=== PATIENT | female | born 1955 | race Caucasian/White ===

== ENCOUNTER 2022-09-16 22:08 | Observation (INO) | payer MEDICARE, SELFPAY ==
--- NOTE | 2022-09-16 22:11 | XRR_ITS ---
PROCEDURE INFORMATION: Exam: XR Chest Exam date and time: 09/16/2022 10:47 PM Age: 66 years old Clinical indication: Other: Weakness TECHNIQUE: Imaging protocol: Radiologic exam of the chest. Views: 1 view. COMPARISON: No relevant prior studies available. FINDINGS: Lungs: Emphysematous changes. Left lower lobe atelectasis versus minimal infiltrate. Pleural spaces: Unremarkable. No pleural effusion. No pneumothorax. Heart/Mediastinum: Unremarkable. No cardiomegaly. Bones/joints: Unremarkable. XR/XR chest 1V portable [id number] IMPRESSION: 1. Emphysematous changes. 2. Left lower lobe atelectasis versus minimal infiltrate.
--- NOTE | 2022-09-16 22:12 | ECG_ITS ---
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 Measurements Intervals [place] Rate: 73 P: 83 SD: 168 QRS: 71 QRSD: 86 T: 42 QT: 388 QTc: 428 Interpretive Statements SINUS RHYTHM WITH MARKED SINUS ARRHYTHMIA NONSPECIFIC ST & T-WAVE ABNORMALITY No previous ECG available for comparison Electronically Signed On 09-17-2022 0:13:53 WAFER FAB TECHNICIAN by Leslie Arzate M.D. [id number]
[2022-09-16 22:24] VITALS: BP 83/51; PULSE 77; RESP 18; TEMP 36.1; O2SAT 94; BMI 18.5
--- NOTE | 2022-09-16 22:36 | ECG_ITS ---
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 Measurements Intervals [place] Rate: 72 P: 0 SD: 0 QRS: -15 QRSD: 153 T: 54 QT: 426 QTc: 467 Interpretive Statements ATRIAL FIBRILLATION INDETERMINATE AXIS RIGHT BUNDLE BRANCH BLOCK [120+ ms QRS DURATION, UPRIGHT V1, 40+ ms S IN I/aVL/V4/V5/V6] MODERATE T-WAVE ABNORMALITY, CONSIDER LATERAL ISCHEMIA [-0.1+ mV T-WAVE IN I/aVL/V5/V6] Compared to ECG 09/16/2022 22:34:33 Indeterminate axis now present Right bundle-branch block now present Possible ischemia now present Sinus rhythm no longer present Sinus arrhythmia no longer present T-wave abnormality still present Electronically Signed On 09-17-2022 0:14:07 TRANSPORTATION ATTENDANT by Leslie Arzate M.D. [email or web address]/[id number]
[2022-09-16 22:47] VITALS: BP 136/67; PULSE 74; RESP 16; O2SAT 94
--- NOTE | 2022-09-16 22:51 | ED_ITS ---
HPI - Weakness General: Chief complaint: Weakness Stated complaint: WEAKNESS Time Seen by Provider: 09/16/22 22:09 Course Vital Signs: Vital signs: Vital Signs Temperature 97.0 F L 09/16/22 22:24 Pulse Rate 74 09/16/22 22:47 Respiratory Rate 16 09/16/22 22:47 Blood Pressure 136/67 09/16/22 22:47 Pulse Oximetry 94 09/16/22 22:47 Oxygen Delivery Me thod 09/16/22 22:47 Discharge Plan Discharge Condition: Stable Coding Level of Care Code ED Pick And Shovel Worker for Laverne Jackson
--- NOTE | 2022-09-16 22:55 | ED_ITS ---
HPI - Weakness General: Chief complaint: Weakness Stated complaint: WEAKNESS Time Seen by Provider: 09/16/22 22:09 Source: patient and EMS Mode of arrival: EMS Limitations: no limitations History of Present Illness: 66-year-old female states that she has been feeling generally weak over the last 2 to 3 days she states that her heater went out at home and she has been cold and laying on her couch she states that she is try to get up and she feels lightheaded when she gets up states she has not been drinking or eating over the last 3 days. She denies any pain anywhere patient had mild hypotension here originally she denies any vomiting denies any diarrhea. Associated symptoms: Denies chest pain, dysuria, easy bruising, headache(s), nausea or vomiting Review of Systems Const: Reports: fatigue and malaise Eyes: Denies: blurry vision or eye discomfort ENMT: Denies: throat pain or dental pain Card: Reports: pre-syncope; Denies: chest pain Resp: Denies: dyspnea GI: Denies: abdominal pain, nausea, vomiting or diarrhea : Denies: dysuria Musc: Denies: neck pain or back pain Skin/Breast: Denies: rash Neuro: Denies: headache(s) Psych: Denies: depression Jesse/Lymph: Denies: easy bruising All/Imm: Denies: urticaria PFSH ED PFSH: Medical History (Updated 09/17/22 @ 00:32 by Jess Kidd MD) Diabetes Social History (Updated 09/16/22 @ 22:56 by Jess Kidd MD) Substance/Drug Use: never Physical Exam Const: COMMON NORMALS: patient oriented x3 HENMT: COMMON NORMALS: normocephalic and atraumatic HEAD & SCALP: normocephalic and atraumatic Eye: COMMON NORMALS: Equal, round and reactive pupils present and EOMs intact bilaterally PUPIL: Yes Equal, round and reactive pupils present Neck/C-Spine: COMMON NORMALS: full ROM and supple Chest: COMMONS NORMALS: normal inspection of the chest and normal palpation of entire chest wall Resp: COMMON NORMALS: normal respiratory effort, No retractions, No use of accessory muscles and clear to auscultation bilaterally AUSCULTATION: clear to auscultation bilaterally Cardio: COMMON NORMALS: regular rate, regular rhythm and No murmurs present (Cardio) RATE: regular rate RHYTHM: regular rhythm GI: COMMON NORMALS: Normal to inspection, nondistended, normoactive bowel sounds present, Soft to palpation, non-tender and no masses PALPATION: Yes Soft to palpation Extremity: COMMON NORMALS: normal to inspection and full ROM Neuro: COMMON NORMALS: patient oriented x3, moves all extremities and no focal motor deficits Psych: COMMON NORMALS: mental status grossly normal, Normal thought process present and cooperative THOUGHT PROCESS: Normal thought process present Skin: COMMON NORMALS: no rashes or lesions noted and no wounds GENERAL SKIN EXAM: no rashes or lesions noted Course Vital Signs: Vital signs: Vital Signs Temperature 97.0 F L 09/16/22 22:24 Pulse Rate 77 09/16/22 23:39 Respiratory Rate 16 09/16/22 23:39 Blood Pressure 101/57 09/16/22 23:39 Pulse Oximetry 98 09/16/22 23:39 Oxygen Delivery Me thod 09/16/22 23:39 MDM - Weakness Medical Decision Making Patient presents here with weakness she is hypokalemic with fasting level 2.3 spoke to hospitalist will admit for observation for potassium replacement. Lab Data 09/16/22 23:07 09/16/22 23:07 Radiology Impressions Chest X-Ray 09/16/22 22:11 IMPRESSION: 1. Emphysematous changes. 2. Left lower lobe atelectasis versus minimal infiltrate. Laboratory Results WBC 7.7 10^3/uL (4.0-10.0) 09/16/22 23:07 RBC 4.32 10^6/uL (4.1-5.3) 09/16/22 23:07 Hgb 13.9 g/dL (11.5-15.3) 09/16/22 23:07 Hct 42.4 % (37.0-47.0) 09/16/22 23:07 MCV 98.1 fl (81-99) 09/16/22 23:07 MCH 32.2 pg (28.0-34.0) 09/16/22 23:07 MCHC 32.8 g/dL (30.0-36.0) 09/16/22 23:07 RDW 14.6 % (12.1-15.1) 09/16/22 23:07 Plt Count 360 10^3/cmm (130-400) 09/16/22 23:07 MPV 9.7 fL (7.4-10.4) 09/16/22 23:07 Neut % (Auto) 68.8 % 09/16/22 23:07 Lymph % (Auto) 23.1 % 09/16/22 23:07 [place] % (Auto) 5.8 % 09/16/22 23:07 Eos % (Auto) 1.4 % 09/16/22 23:07 Baso % (Auto) 0.5 % 09/16/22 23:07 Neut # (Auto) 5.29 10^3/uL (1.8-7.7) 09/16/22 23:07 Lymph # (Auto) 1.8 10^3/uL (0.8-4.8) 09/16/22 23:07 [place] # (Auto) 0.5 10^3/uL (0.2-0.9) 09/16/22 23:07 Eos # (Auto) 0.1 10^3/uL (0.0-0.8) 09/16/22 23:07 Baso # (Auto) 0.0 10^3/uL (0.0-0.1) 09/16/22 23:07 Nucleated RBC % (auto) 0 % 09/16/22 23:07 Nucleated RBCs # 0.0 /100WBC 09/16/22 23:07 Sodium 136 mmol/L (136-145) 09/16/22 23:07 Potassium 2.3 mmol/L (3.5-5.1) L* 09/16/22 23:07 Chloride 89 mmol/L (98-107) L 09/16/22 23:07 Carbon Dioxide 34 mmol/L (22-29) H 09/16/22 23:07 Anion Gap 15.3 (5-19) 09/16/22 23:07 BUN 18 mg/dL (8-23) 09/16/22 23:07 Creatinine 0.6 mg/dL (0.5-0.9) 09/16/22 23:07 GFR Calculation 99.4 mL/min (90-130) 09/16/22 23:07 Glucose 121 mg/dL (65-115) H 09/16/22 23:07 POC Glucose 126 mg/dL (70-110) H 09/16/22 23:07 Calculated Osmolality 285 mOsm/kg (285-295) 09/16/22 23:07 Lactate 1.7 mmol/L (0.5-2.2) 09/16/22 23:07 Calcium 10.0 mg/dL (8.5-10.5) 09/16/22 23:07 Magnesium 1.5 mg/dL (1.7-2.3) L 09/16/22 23:07 Total Bilirubin 0.4 mg/dL (0.15-1.2) 09/16/22 23:07 AST 23 U/L (0-32) 09/16/22 23:07 ALT 15 U/L (0-33) 09/16/22 23:07 Alkaline Phosphatase 104 U/L (35-105) 09/16/22 23:07 Troponin T Baseline 17 ng/L (0-10) H 09/16/22 23:07 Total Protein 6.7 g/dL (6.6-8.7) 09/16/22 23:07 Albumin 3.9 g/dL (3.5-5.2) 09/16/22 23:07 Globulin 2.8 g/dL (1.3-4.6) 09/16/22 23:07 TSH 2.42 uIU/mL (0.27-4.20) 09/16/22 23:07 EKG Data EKG 1: I personally reviewed and interpreted this EKG as follows: EKG interpretation date: 09/16/22 EKG interpretation time: 22:34 Interpretation: nsr hr [address] or t wave abnormalities qrs 86 qtc 414 Discharge Plan Discharge Patient Disposition: Admitted As Inpatient Clinical Impression: Hypokalemia, Weakness Condition: Stable Coding Level of Care Code ED Android Architect for Laverne Jackson
[2022-09-16 23:12] LABS: Glucose Point of Care 126 mg/dL (70-110)
[2022-09-16 23:17] LABS: Basophils % 0.5 %; Eosinophils # 0.1 10^3/uL (0.0-0.8); Eosinophils % 1.4 %; Hematocrit 42.4 % (37.0-47.0); Hemoglobin 13.9 g/dL (11.5-15.3); Lymphocytes # 1.8 10^3/uL (0.8-4.8); Lymphocytes % 23.1 %; Mean Corpuscular HGB Conc 32.8 g/dL (30.0-36.0); Mean Corpuscular Hemoglobin 32.2 pg (28.0-34.0); Mean Corpuscular Volume 98.1 fl (81-99); Mean Platelet Volume 9.7 fL (7.4-10.4); Monocytes # 0.5 10^3/uL (0.2-0.9); Monocytes % 5.8 %; Neutrophils # 5.29 10^3/uL (1.8-7.7); Neutrophils % 68.8 %; Nucleated Red Blood Cells % 0 %; Platelet Count 360 10^3/cmm (130-400); Red Blood Count 4.32 10^6/uL (4.1-5.3); Red Cell Distribution Width 14.6 % (12.1-15.1); White Blood Count 7.7 10^3/uL (4.0-10.0)
--- NOTE | 2022-09-16 23:19 | PC.NURSE ---
Pedal pulses doppled, feet cold to the touch, cap refill <3sec
[2022-09-16 23:39] VITALS: BP 101/57; PULSE 77; RESP 16; O2SAT 98
[2022-09-16 23:39] LABS: Lactate (Lactic Acid level) 1.7 mmol/L (0.5-2.2)
[2022-09-16 23:41] LABS: Troponin(5th) Baseline 17 ng/L (0-10)
[2022-09-16] MEDS: sodium chloride 0.9% 1,000 ML 999 ML IV (23:47)
[2022-09-16 23:52] LABS: Alanine Aminotransferase 15 U/L (0-33); Albumin Level 3.9 g/dL (3.5-5.2); Alkaline Phosphatase 104 U/L (35-105); Anion Gap 15.3 (5-19); Aspartate Amino Transferase 23 U/L (0-32); Blood Urea Nitrogen 18 mg/dL (8-23); Carbon Dioxide 34 mmol/L (22-29); Chloride 89 mmol/L (98-107); Globulin 2.8 g/dL (1.3-4.6); Glomerular Filtration Rate 99.4 mL/min (90-130); Glucose 121 mg/dL (65-115); Osmolality Calculated 285 mOsm/kg (285-295); Sodium 136 mmol/L (136-145); Thyroid Stimulating Hormone 2.42 uIU/mL (0.27-4.20); Total Bilirubin 0.4 mg/dL (0.15-1.2); Total Protein 6.7 g/dL (6.6-8.7)
[2022-09-17] VITALS (11 sets, daily range): BP systolic 133–178; BP diastolic 60–81; PULSE 68–86; RESP 16–18; TEMP 36.7; O2SAT 92–97
[2022-09-17 00:13] LABS: Potassium 2.3 mmol/L (3.5-5.1)
[2022-09-17] MEDS: potassium chloride ER 20 mEq Tablet 40 MEQ PO ×4 (00:50→15:04)
[2022-09-17] MEDS: sodium chloride 0.9% 1,000 ML 999 ML IV (00:51)
[2022-09-17] MEDS: potassium chloride premix 100 ML 25 MEQ IV (00:51)
[2022-09-17 01:09] LABS: Magnesium 1.5 mg/dL (1.7-2.3)
[2022-09-17 01:21] LABS: Troponin 5 2HR 16.58 ng/L (0-10)
[2022-09-17 01:23] LABS: Troponin 5 2HR Delta -0.42 ABS# (0-10)
[2022-09-17 02:04] LABS: Add Urine Microscopic? NO; Charge for UA Resulting for Rev
[2022-09-17 02:20] LABS: Bilirubin Urine Neg (Negative); Blood Urine Neg (Negative); Glucose Urine UA 4+ (Normal); Ketones Urine Negative (Negative); Leukocyte Esterase Urine Negative (Negative); Nitrate Urine Negative (Negative); Protein Urine Neg (Negative); Urine Appearance Clear (CLEAR); Urine Color Yellow (Yellow); Urobilinogen Urine Norm (Negative); pH Urine 7 (5-7)
[2022-09-17] MEDS: ibuprofen 600 mg Tablet PO (04:31)
--- NOTE | 2022-09-17 04:36 | ECG_ITS ---
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 Measurements Intervals [place] Rate: 73 P: 80 OK: 182 QRS: 77 QRSD: 99 T: 68 QT: 397 QTc: 440 Interpretive Statements SINUS RHYTHM WITH SINUS ARRHYTHMIA Compared to ECG 09/16/2022 23:15:22 Atrial fibrillation no longer present Indeterminate axis no longer present Right bundle-branch block no longer present T-wave abnormality no longer present Possible ischemia no longer present Electronically Signed On 09-18-2022 8:16:14 GROUP LEADER by Chantale Neumann M.D. [id number]
[2022-09-17 06:21] LABS: Troponin 5 6HR 21.13 ng/L (0-10)
[2022-09-17 06:25] LABS: Troponin 5 6HR Delta 4.13 ng/L (0-12)
[2022-09-17 08:16] LABS: Alanine Aminotransferase 13 U/L (0-33); Albumin Level 3.3 g/dL (3.5-5.2); Alkaline Phosphatase 87 U/L (35-105); Aspartate Amino Transferase 21 U/L (0-32); Blood Urea Nitrogen 13 mg/dL (8-23); Calcium 8.9 mg/dL (8.5-10.5); Carbon Dioxide 27 mmol/L (22-29); Chloride 99 mmol/L (98-107); Globulin 2.4 g/dL (1.3-4.6); Glomerular Filtration Rate 99.4 mL/min (90-130); Glucose 166 mg/dL (65-115); Osmolality Calculated 298 mOsm/kg (285-295); Sodium 142 mmol/L (136-145); Total Bilirubin 0.3 mg/dL (0.15-1.2); Total Protein 5.7 g/dL (6.6-8.7)
[2022-09-17] MEDS: pantoprazole DR 40 mg Tablet PO (08:20)
[2022-09-17] MEDS: sodium chloride 0.9% 1,000 ML 75 ML IV (08:21)
--- NOTE | 2022-09-17 11:01 | USCV_ITS ---
Cynthia Harrell Age: 66 Gender: F : 1955 Exam Date: 09/17/2022 12:35 Ordering Phys: Tl Barajas MD Technologist: Slava Pratt Exam Location: [facility] Indication: chest pain sob BP: 132 / 72 HR: 66 Rhythm: Sinus Technical Quality: Adequate MEASUREMENTS (Male / Female) Normal Values 2D ECHO LVOT Diameter 1.7 cm LV Ejection Fraction MOD 2C 69.3 % LV Ejection Fraction 2C AL 69.0 % LA Diameter 3.6 cm LA Width 2.8 cm M-MODE LV Diastolic Diameter MM 3.6 cm 4.2 - 5.9 / 3.9 - 5.3 cm LV Systolic Diameter MM 2.6 cm LV Ejection Fraction MM Teich 56.2 % IVS Diastolic Thickness MM 1.0 cm 0.6 - 1.0 / 0.6 - 0.9 cm IVS Systolic Thickness MM 1.6 cm LVPW Diastolic Thickness MM 0.8 cm 0.6 - 1.0 / 0.6 - 0.9 cm LVPW Systolic Thickness MM 1.5 cm RV Diastolic Diameter MM 1.8 cm Aortic Annulus Diameter 2.6 cm LA Ao Ratio MM 1.5 MV E Point Septal Separation 0.7 cm DOPPLER AV Peak Velocity 120.0 cm/s LVOT Peak Velocity 100.0 cm/s AV Area Cont Eq vti 1.7 cm squared AV Area Cont Eq pk 1.9 cm squared MV Area PHT 5.0 cm squared Mitral E to A Ratio 1.5 MV E' Velocity 76.0 cm/s Mitral E to MV E' Ratio 11.6 Mitral E to LV E' Lateral Ratio 16.8 Mitral E to LV E' Septal Ratio 8.9 TR Peak Velocity 170.7 cm/s TR Peak Gradient 11.7 mmHg Right Atrial Pressure 3.0 mmHg Pulmonary Artery Systolic Pressu 14.7 mmHg FINDINGS Left Ventricle Left ventricle is normal in size. LV systolic function is normal with EF of 55 to 60%. No regional wall motion abnormalities are seen. Diastolic function is normal Right Ventricle Normal in size and function Right Atrium Normal in size Left Atrium Normal in size Mitral Valve Moderate mitral annular calcification. Moderate mitral regurgitation Aortic Valve Structurally normal aortic valve. No significant aortic stenosis. Mild aortic regurgitation. Tricuspid Valve Mild tricuspid regurgitation. Pulmonary artery systolic pressure is normal. Pulmonic Valve Not well-visualized Pericardium Normal Aorta Normal in size IVC Appears to be normal CONCLUSIONS Technically limited quality echocardiogram because of poor ultrasonic windows LV systolic function is normal with EF of 55 to 60%. Diastolic function is normal. Moderate mitral annular calcification. Moderate mitral regurgitation Mild aortic regurgitation Mild tricuspid regurgitation No comparison studies are available. Jorge Luis Jones MD (Electronically Signed) Final Date: 17 September 2022 18:42 S
--- NOTE | 2022-09-17 11:07 | XRR_ITS ---
PROCEDURE INFORMATION: Exam: XR Chest Exam date and time: 09/17/2022 11:44 AM Age: 66 years old Clinical indication: Shortness of breath; Additional info: SOB, weakness TECHNIQUE: Imaging protocol: Radiologic exam of the chest. Views: 1 view. COMPARISON: CR (CHEST, ) 09/16/2022 10:47 PM FINDINGS: Lungs: Faint ground-glass opacity projecting peripherally left lower lung zone that appears to at progressed from previous exam raising possibility of developing viral pneumonitis. There appears to be underlying mild interstitial lung changes at both lung bases relatively stable and possibly due to idiopathic interstitial lung disease. Findings could be better assessed on CT examination of the chest. Pleural spaces: Unremarkable. No pleural effusion. No pneumothorax. Heart/Mediastinum: Unremarkable. No cardiomegaly. Bones/joints: Unremarkable for age. XR/XR chest 1V portable [id number] IMPRESSION: Questionable developing viral pneumonitis superimposed on mild bibasilar interstitial lung changes as discussed above.
[2022-09-17 11:41] LABS: Estmated Average Glucose 148; Hemoglobin A1C 6.8 % (4.0-6.0)
[2022-09-17 11:49] LABS: Anion Gap 13.2 (5-19); Blood Urea Nitrogen 13 mg/dL (8-23); Carbon Dioxide 35 mmol/L (22-29); Chloride 96 mmol/L (98-107); Glomerular Filtration Rate 99.4 mL/min (90-130); Glucose 148 mg/dL (65-115); Osmolality Calculated 295 mOsm/kg (285-295); Potassium 3.2 mmol/L (3.5-5.1); Sodium 141 mmol/L (136-145)
[2022-09-17 12:01] LABS: Procalcitonin 0.04 ng/mL (0-0.5)
[2022-09-17 12:09] LABS: Thyroid Stimulating Hormone 3.39 uIU/mL (0.27-4.20); Vitamin B12 1203 pg/mL (232-1245)
[2022-09-17 12:20] LABS: Iron 39 ug/dL (37-145); Percent Saturation 13.1 % (20-50); Total Iron Binding Capacity 296 mcg/dl; Unsaturated Iron Binding 257 ug/dL (112-347)
[2022-09-17 12:29] LABS: Folate Level > 20.0 ng/mL (4.8-37.3)
[2022-09-17] MEDS: fluticasone nasal spray 16gm Btl 1 SPRAY NASAL ×2 (12:34→18:00)
[2022-09-17 12:43] LABS: Glucose Point of Care 150 mg/dL (70-110)
--- NOTE | 2022-09-17 12:50 | PM.HP ---
Providers/Chief Complaint Admitting Physician: Tl Barajas MD Chief Complaint: WEAKNESS History of Present Illness Cynthia Harrell is a 66 year old female with past medical history of hypertension, anxiety, type 2 diabetes mellitus presents to the ER today because of weakness and dizziness especially on standing up. Been getting worse over last 3 days. After the patient she thought she has been having a sinus infection for last 1 week to 10 days for which she went to her primary care provider last week of August and was diagnosed of common cold. Since then she has been to an outside hospital for fall where she was diagnosed of sinus infection and first put on Bactrim which was later changed to Augmentin. Patient has been taking Augmentin for last few days. Patient has been complaining of on and off diarrhea. Patient states she has a history of hypertension for which she is supposed to be on lisinopril but she has not been taking her medications for last some time because of low blood pressures. Dizziness is getting worse on standing up from sitting position and moving head from one side to another. On presentation to the ER blood work showed potassium of 2.3 with a creatinine of 0.6 and a magnesium of 1.5. She was given 40 mg of oral and 40 mg of IV potassium and her potassium has improved to 3. Patient states she still feeling weak but less dizzy. Review of Systems General: Reports: 10 or more systems reviewed and unremarkable except in HPI and below Const: Denies: fever(s), chills, body aches, change in appetite, change in weight, malaise, night sweats, diaphoresis, change in sleep pattern, daytime sleepiness or snoring Eyes: Denies: change in vision, blurry vision, photophobia, eye discomfort or eye discharge ENMT: Denies: throat pain, enlarged tonsils, hoarseness, mouth pain, oral sores, dry mouth, tinnitus, nasal congestion or post nasal drip Card: Denies: chest pain, palpitations, irregular heart rhythm, edema, swelling of feet/ankles, lightheadedness, syncope, pre-syncope, dyspnea on exertion, orthopnea, leg pain with exertion or acrocyanosis Resp: Denies: dyspnea, productive cough, non-productive cough, wheezing, stridor, pain on inspiration, change in phlegm color, hemoptysis or chest congestion GI: Denies: abdominal pain, nausea, vomiting, hematemesis, coffee ground emesis, dysphagia, heartburn, diarrhea, constipation, bloating, GI cramping, change in bowel habits, pain on defecation, hematochezia or melena : Denies: flank pain, dysuria, urinary frequency, urinary urgency, urinary hesitancy, nocturia or hematuria Musc: Denies: neck pain, back pain, extremity pain, joint pain, joint swelling, joint redness, joint stiffness or limited range of motion Neuro: Denies: headache(s), numbness in extremities, weakness in extremities, sensory changes, lack of coordination, difficulty walking, frequent falls, dizziness, vertigo, confusion, Slurred speech present, difficulty communicating thoughts or seizure-like activity Psych: Denies: anxiety, depression, mood swings, panic attacks, hopelessness or irritability Endo: Denies: polyuria, polydipsia, tired all the time, cold intolerance, excessive sweating, flushing or heat intolerance Jesse/Lymph: Denies: easy bruising or easy bleeding All/Imm: Denies: tongue swelling, facial swelling or acute wheezing Medications/Allergies Home Medications Medication Instructions Recorded Confirmed Last Taken Type albuterol sulfate 90 mcg/actuation 2 puff inhalation Q4H PRN 09/17/22 09/17/22 Unknown History aerosol inhaler (Ventolin HFA) Shortness Of Breath Or Wheezing calcium carbonate 600 mg-vitamin 1 tab PO DAILY 09/17/22 09/17/22 09/16/22 History D3 20 mcg (800 unit) chewable tablet (Caltrate 600 plus D) canagliflozin 100 mg tablet 100 mg PO DAILY 09/17/22 09/17/22 09/16/22 History (Invokana) clopidogrel 75 mg tablet 75 mg PO DAILY 09/17/22 09/17/22 09/16/22 History desloratadine 5 mg tablet 5 mg PO DAILY 09/17/22 09/17/22 09/16/22 History duloxetine 30 mg capsule,delayed 30 mg PO DAILY 09/17/22 09/17/22 09/16/22 History release fluticasone propionate 50 1 spray intranasal DAILY 09/17/22 09/17/22 09/16/22 History mcg/actuation nasal spray,suspension furosemide 20 mg tablet 20 mg PO DAILY 09/17/22 09/17/22 09/16/22 History lisinopril 10 mg tablet 10 mg PO DAILY 09/17/22 09/17/22 09/16/22 History melatonin 5 mg tablet 5 mg PO BEDTIME 09/17/22 09/17/22 Unknown History afldcrld-jphusfu-ltvw-lutein tablet 1 tab PO DAILY 09/17/22 09/17/22 09/16/22 History omeprazole 20 mg capsule,delayed 20 mg PO DAILY 09/17/22 09/17/22 09/16/22 History release pravastatin 20 mg tablet 20 mg PO BEDTIME 09/17/22 09/17/22 Unknown History Allergies Allergy/AdvReac Type Severity Reaction Status Date / Time hydromorphone [From Dilaudid] Allergy Unknown Verified 09/17/22 07:40 meperidine [From Demerol] Allergy Unknown Verified 09/17/22 07:40 procaine [From Novocain] Allergy Unknown Verified 09/17/22 07:40 PFSH Acute PFSH: Medical History (Updated 09/17/22 @ 13:02 by Tl Barajas MD) COPD (chronic obstructive pulmonary disease) Diabetes Hypertension Social History (Updated 09/16/22 @ 22:56 by Jess Kidd MD) Substance/Drug Use: never Vitals/I&O/Wt Last Vital Signs Temp 97.0 F L 09/16/22 22:24 Pulse 86 09/17/22 12:30 Resp 16 09/17/22 12:30 BP 148/81 09/17/22 12:30 Pulse Ox 95 09/17/22 12:30 O2 Del Method 09/17/22 12:30 O2 Flow Rate 2 09/17/22 09:50 09/16/22 09/17/22 09/17/22 22:59 06:59 14:59 Intake Total 2051 200 / 200 Balance 2051 200 / 200 Weight last 48 hrs Weight 43.091 kg Physical Exam Narrative: General: No acute distress, AO x3, dehydrated HEENT: PERRLA, pupils bilaterally equal and reactive Chest: Normal vesicular breath sounds, no added sounds, equal good air entry bilaterally CVS: S1-S2 regular, no murmurs, no tachycardia, no gallops, no rubs Abdomen: Soft, nontender, no organomegaly, bowel sounds present Neuro: No focal deficits, no facial deformity, AO x3, power 5/5 in all limbs Data 09/16/22 23:07 09/17/22 11:20 A&P Assessment and plan (1) Weakness: Most likely secondary to hypokalemia secondary to diarrhea. Continue with IV hydration. Replete 120 mg of oral potassium. Repeat potassium in evening. Check orthostatics. Patient does not have any fever, leukocytosis or tachycardia. Infectious cause less likely. Hold off on antibiotics for now. Check flu swab. Check TSH, procalcitonin, vitamin B12, folate, iron panel. (2) Hypokalemia: As above. Hold off on Lasix for now. (3) Dizziness: Most likely secondary to hypokalemia. Cannot rule out posterior circulation stroke. Check CT head. Orthostatic. Meclizine as needed. (4) Diarrhea: Patient has been on antibiotics recently. Check stool for C. difficile. If negative will plan for loperamide (5) Hypertension: Goal blood pressure less than 140 over 90 mmHg. Patient is supposed to take lisinopril 10 mg oral at home. Patient states he has been noncompliant with medications. Check orthostatics. Restart medications as per goal blood pressures. (6) COPD (chronic obstructive pulmonary disease): DuoNebs every 6 hours, budesonide twice daily. Flonase twice daily. Oxygen supplementation keeping saturation over 90%. (7) Diabetes: Check A1c. Insulin sliding scale and low-dose protocol. Plan Full code. Carb consistent diet. Heparin for DVT prophylaxis Protonix ocularly prophylaxis Attestations Medical Necessity Statement*: Admission less than 2 midnights for management of weakness and dizziness in setting of severe hypokalemia and diarrhea Coding Level of Care Code 75633 Moderate MDM includes risk/complexity, reviewing previous or external records, reviewing test results, ordering lab/other test(s), speaking with independent historian (other than patient), independently interpretating test(s) (not separately recorded) and discussion of management or test(s) w/ other healthcare professional and Moderate Time for a total of 50 minutes, includes reviewing past or interval history, examining/interviewing patient, placing orders, counseling patient/family/other support, updating patient/family/other support, discussing plan of care with staff, communicating with other healthcare providers, documenting encounter and coordinating care Diagnoses Weakness R53.1 Hypokalemia E87.6 Dizziness R42 Diarrhea R19.7 Hypertension I10 COPD (chronic obstructive pulmonary disease) J44.9 Diabetes E11.9
[2022-09-17] MEDS: clopidogrel 75 mg Tablet PO (13:07)
[2022-09-17] MEDS: duloxetine 30 mg Capsule PO (13:07)
[2022-09-17 13:08] LABS: Influenza A by IFA negative (Negative); Influenza B by IFA negative (Negative)
[2022-09-17] MEDS: ipratropium-albuterol 3 mL Neb INHALATION ×2 (14:21→20:03)
[2022-09-17] MEDS: heparin 5,000 unit/mL INJ 1 mL 5000 UNIT SUBCUT (15:04)
[2022-09-17 18:05] LABS: Glucose Point of Care 157 mg/dL (70-110)
--- NOTE | 2022-09-17 18:31 | PC.NURSE ---
PT REFUSED FERROUS GLUCONATE, HUMALOG AND COLACE. EDUC PT ON RISKS AND BENEFITS OF TAKING MEDICATIONS, DR NOTIFIED AND AWARE.
[2022-09-17] MEDS: ondansetron 2 mg/ML SDV 2 mL 4 MG IVP (19:45)
[2022-09-17 19:59] LABS: Blood Urea Nitrogen 12 mg/dL (8-23); Calcium 10.2 mg/dL (8.5-10.5); Carbon Dioxide 32 mmol/L (22-29); Chloride 99 mmol/L (98-107); Glomerular Filtration Rate 99.4 mL/min (90-130); Glucose 152 mg/dL (65-115); Osmolality Calculated 297 mOsm/kg (285-295); Sodium 142 mmol/L (136-145)
[2022-09-17 20:01] LABS: Anion Gap 15.1 (5-19); Potassium 4.1 mmol/L (3.5-5.1)
[2022-09-17] MEDS: budesonide 0.5 mg/2 mL Neb INHALATION (20:03)
[2022-09-17 22:11] LABS: Glucose Point of Care 163 mg/dL (70-110)
[2022-09-17] MEDS: atorvastatin 40 mg Tablet 20 MG PO (22:32)
[2022-09-17] MEDS: benzonatate 100 mg Capsule PO (22:32)
[2022-09-18] VITALS (11 sets, daily range): BP systolic 135–178; BP diastolic 49–93; PULSE 71–94; RESP 16–20; TEMP 36.4–37.2; O2SAT 90–97
[2022-09-18] MEDS: ipratropium-albuterol 3 mL Neb INHALATION ×2 (02:18→15:53)
[2022-09-18 05:01] LABS: Basophils % 0.4 %; Eosinophils # 0.1 10^3/uL (0.0-0.8); Eosinophils % 0.9 %; Hematocrit 36.4 % (37.0-47.0); Hemoglobin 11.4 g/dL (11.5-15.3); Lymphocytes # 1.9 10^3/uL (0.8-4.8); Lymphocytes % 22.9 %; Mean Corpuscular HGB Conc 31.3 g/dL (30.0-36.0); Mean Corpuscular Hemoglobin 31.5 pg (28.0-34.0); Mean Corpuscular Volume 100.6 fl (81-99); Mean Platelet Volume 9.8 fL (7.4-10.4); Monocytes # 0.5 10^3/uL (0.2-0.9); Monocytes % 6.1 %; Neutrophils # 5.62 10^3/uL (1.8-7.7); Neutrophils % 69.5 %; Nucleated Red Blood Cells % 0 %; Platelet Count 327 10^3/cmm (130-400); Red Blood Count 3.62 10^6/uL (4.1-5.3); Red Cell Distribution Width 14.6 % (12.1-15.1); White Blood Count 8.1 10^3/uL (4.0-10.0)
[2022-09-18 05:20] LABS: Alanine Aminotransferase 15 U/L (0-33); Albumin Level 3.4 g/dL (3.5-5.2); Alkaline Phosphatase 85 U/L (35-105); Anion Gap 13.5 (5-19); Aspartate Amino Transferase 22 U/L (0-32); Blood Urea Nitrogen 11 mg/dL (8-23); Calcium 9.4 mg/dL (8.5-10.5); Carbon Dioxide 28 mmol/L (22-29); Chloride 106 mmol/L (98-107); Globulin 2.4 g/dL (1.3-4.6); Glomerular Filtration Rate 99.4 mL/min (90-130); Glucose 142 mg/dL (65-115); Magnesium 1.9 mg/dL (1.7-2.3); Osmolality Calculated 298 mOsm/kg (285-295); Potassium 4.5 mmol/L (3.5-5.1); Sodium 143 mmol/L (136-145); Total Bilirubin 0.3 mg/dL (0.15-1.2); Total Protein 5.8 g/dL (6.6-8.7)
[2022-09-18 05:25] LABS: Chol HDL Ratio 2.85 mg/dL (0.0-4.40); Cholesterol 151 mg/dL (0-200); HDL Cholesterol 53 mg/dL (60-100); LDL Cholesterol Calculated 68 mg/dL (50-129); Triglycerides 152 mg/dL (0-150); VLDL Cholestrol Calculation 30 mg/dL (0-30)
[2022-09-18 07:47] LABS: Glucose Point of Care 122 mg/dL (70-110)
--- NOTE | 2022-09-18 10:35 | PM.DCS ---
Discharge Providers Date of Admission: 09/17/22 07:08 Date of Discharge: September 18, 2022 Attending Provider at Admission: Tl Barajas MD Attending Provider at Discharge: Tl Barajas MD Diagnoses at Discharge Discharge Diagnosis (1) Weakness: Status: Acute (2) Hypokalemia: Status: Acute (3) Dizziness: Status: Acute (4) Diarrhea: Status: Acute (5) Hypertension: Status: Acute (6) COPD (chronic obstructive pulmonary disease): Status: Acute (7) Diabetes: Status: Acute Reason for Visit Reason for Visit: WEAKNESS Hospital Course Hospital Course Cynthia Harrell is a 66 year old female with past medical history of hypertension, anxiety, type 2 diabetes mellitus presents to the ER today because of weakness and dizziness especially on standing up.? Been getting worse over last 3 days.? After the patient she thought she has been having a sinus infection for last 1 week to 10 days for which she went to her primary care provider last week of August and was diagnosed of common cold.? Since then she has been to an outside hospital for fall where she was diagnosed of sinus infection and first put on Bactrim which was later changed to Augmentin.? Patient has been taking Augmentin for last few days.? Patient has been complaining of on and off diarrhea. Patient states she has a history of hypertension for which she is supposed to be on lisinopril but she has not been taking her medications for last some time because of low blood pressures.? Dizziness is getting worse on standing up from sitting position and moving head from one side to another. On presentation to the ER blood work showed potassium of 2.3 with a creatinine of 0.6 and a magnesium of 1.5.? She was given 40 mg of oral and 40 mg of IV potassium and her potassium has improved to 3.? Patient states she still feeling weak but less dizzy. Patient open to the hospital further evaluation and management of dehydration and acute hypokalemia leading to dizziness and weakness. Potassium was aggressively repleted. Multiple other causes for dizziness and weakness were ruled out including infection, posterior circulation stroke, congestive heart failure, anemia or thyroid abnormality. She responded well to the treatment and after recovery from hypokalemia her symptoms resolved. She was seen by physical therapy. She has been discharged hemodynamically stable condition with advised to stop antibiotics, maintaining hydration, meclizine as needed for dizziness, Advair for COPD. She is also advised to stop taking Lasix for now. Physical Exam Narrative: General: No acute distress, AO x3, dehydrated HEENT: PERRLA, pupils bilaterally equal and reactive Chest: Normal vesicular breath sounds, no added sounds, equal good air entry bilaterally CVS: S1-S2 regular, no murmurs, no tachycardia, no gallops, no rubs Abdomen: Soft, nontender, no organomegaly, bowel sounds present Neuro: No focal deficits, no facial deformity, AO x3, power 5/5 in all limbs Discharge Data Studies Completed and Pending Completed Studies During Hospitalization Category Date Time Status CT head wo con* [id number] Routine Cat Scan 09/18/22 13:01 Completed XR chest 1V portable [id number] Routine Exams 09/17/22 11:07 Completed XR chest 1V portable [id number] Stat Exams 09/16/22 22:11 Completed CV. echo complete* [id number] Routine Ultrasound 09/17/22 11:01 Completed Pending at discharge Category Date Time Status Clostridioides Difficile PCR Routine Lab 09/17/22 13:02 Ordered Enteric Bacterial Panel by PCR Routine Lab 09/17/22 13:02 Ordered Enteric Parasite Panel by PCR Routine Lab 09/17/22 13:02 Ordered Immunochemical Fecal OCB Routine Lab 09/17/22 13:02 Ordered Lactoferrin Routine Lab 09/17/22 13:02 Ordered Urine Lytes [Urine Random Lytes] Routine Lab 09/17/22 10:58 Ordered Radiology Impressions Chest X-Ray 09/17/22 11:07 IMPRESSION: Questionable developing viral pneumonitis superimposed on mild bibasilar interstitial lung changes as discussed above. Head CT 09/18/22 13:01 IMPRESSION: 1. No evidence of intracranial hemorrhage or mass effect. 2. 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 3. 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 This can be further evaluated MRI if indicated. 4. Vascular calcification. 5. No acute intracranial findings. Echocardiogram: ?CONCLUSIONS ?1. This is a technically difficult study. Optison was used per ?protocol. ?2. Normal left ventricular cavity size and systolic function. ?Left ventricular ejection fraction is estimated at 65 %. No ?regional wall motion abnormalities. ?3. Possibly low gradient severe aortic stenosis with peak ?velocity 3.9 m/s, peak gradient 62 mm Hg, mean gradient 29 mm ?Hg, LANG 0.6 cm2 (LVOT=1.9 cm). DVI=0.25. ?4. VINNIE is recommended for complete assessment of aortic ?stenosis. ?Chantale Neumann MD ?(Electronically Signed) ?Final Date:? ? ? 12 September 2022 ? 12:59 S Laboratory Results WBC 8.1 10^3/uL (4.0-10.0) 09/18/22 04:25 RBC 3.62 10^6/uL (4.1-5.3) L 09/18/22 04:25 Hgb 11.4 g/dL (11.5-15.3) L 09/18/22 04:25 Hct 36.4 % (37.0-47.0) L 09/18/22 04:25 MCV 100.6 fl (81-99) H 09/18/22 04:25 MCH 31.5 pg (28.0-34.0) 09/18/22 04:25 MCHC 31.3 g/dL (30.0-36.0) 09/18/22 04:25 RDW 14.6 % (12.1-15.1) 09/18/22 04:25 Plt Count 327 10^3/cmm (130-400) 09/18/22 04:25 MPV 9.8 fL (7.4-10.4) 09/18/22 04:25 Neut % (Auto) 69.5 % 09/18/22 04:25 Lymph % (Auto) 22.9 % 09/18/22 04:25 [place] % (Auto) 6.1 % 09/18/22 04:25 Eos % (Auto) 0.9 % 09/18/22 04:25 Baso % (Auto) 0.4 % 09/18/22 04:25 Neut # (Auto) 5.62 10^3/uL (1.8-7.7) 09/18/22 04:25 Lymph # (Auto) 1.9 10^3/uL (0.8-4.8) 09/18/22 04:25 [place] # (Auto) 0.5 10^3/uL (0.2-0.9) 09/18/22 04:25 Eos # (Auto) 0.1 10^3/uL (0.0-0.8) 09/18/22 04:25 Baso # (Auto) 0.0 10^3/uL (0.0-0.1) 09/18/22 04:25 Nucleated RBC % (auto) 0 % 09/18/22 04:25 Nucleated RBCs # 0.0 /100WBC 09/18/22 04:25 Sodium 143 mmol/L (136-145) 09/18/22 04:25 Potassium 4.5 mmol/L (3.5-5.1) 09/18/22 04:25 Chloride 106 mmol/L (98-107) 09/18/22 04:25 Carbon Dioxide 28 mmol/L (22-29) 09/18/22 04:25 Anion Gap 13.5 (5-19) 09/18/22 04:25 BUN 11 mg/dL (8-23) 09/18/22 04:25 Creatinine 0.6 mg/dL (0.5-0.9) 09/18/22 04:25 GFR Calculation 99.4 mL/min (90-130) 09/18/22 04:25 Glucose 142 mg/dL (65-115) H 09/18/22 04:25 POC Glucose 122 mg/dL (70-110) H 09/18/22 07:25 Estimat Average Glucose 148 09/17/22 11:20 Hemoglobin A1c 6.8 % (4.0-6.0) H 09/17/22 11:20 Calculated Osmolality 298 mOsm/kg (285-295) H 09/18/22 04:25 Lactate 1.7 mmol/L (0.5-2.2) 09/16/22 23:07 Calcium 9.4 mg/dL (8.5-10.5) 09/18/22 04:25 Phosphorus 2.0 mg/dL (2.5-4.5) L 09/18/22 04:25 Magnesium 1.9 mg/dL (1.7-2.3) 09/18/22 04:25 Iron 39 ug/dL (37-145) 09/17/22 11:20 TIBC 296 mcg/dl 09/17/22 11:20 % Saturation 13.1 % (20-50) L 09/17/22 11:20 Unsat Iron Binding 257 ug/dL (112-347) 09/17/22 11:20 Total Bilirubin 0.3 mg/dL (0.15-1.2) 09/18/22 04:25 AST 22 U/L (0-32) 09/18/22 04:25 ALT 15 U/L (0-33) 09/18/22 04:25 Alkaline Phosphatase 85 U/L (35-105) 09/18/22 04:25 Troponin T Baseline 17 ng/L (0-10) H 09/16/22 23:07 Troponin T 120 Minute 16.58 ng/L (0-10) H 09/17/22 00:56 Delta Troponin T -0.42 ABS# (0-10) L 09/17/22 00:56 Troponin T Hi Sens 6Hr 21.13 ng/L (0-10) H 09/17/22 06:00 Troponin T Hi Sens 6Hr Delta 4.13 ng/L (0-12) 09/17/22 06:00 Total Protein 5.8 g/dL (6.6-8.7) L 09/18/22 04:25 Albumin 3.4 g/dL (3.5-5.2) L 09/18/22 04:25 Globulin 2.4 g/dL (1.3-4.6) 09/18/22 04:25 Triglycerides 152 mg/dL (0-150) H 09/18/22 04:25 Cholesterol 151 mg/dL (0-200) 09/18/22 04:25 LDL Cholesterol, Calc 68 mg/dL (50-129) 09/18/22 04:25 Total VLDL Cholesterol 30 mg/dL (0-30) 09/18/22 04:25 HDL Cholesterol 53 mg/dL (60-100) L 09/18/22 04:25 Cholesterol/HDL Ratio 2.85 mg/dL (0.0-4.40) 09/18/22 04:25 Vitamin B12 1203 pg/mL (232-1245) 09/17/22 11:20 Folate > 20.0 ng/mL (4.8-37.3) 09/17/22 11:20 Procalcitonin 0.04 ng/mL (0-0.5) 09/17/22 11:20 TSH 3.39 uIU/mL (0.27-4.20) 09/17/22 11:20 Urine Color Yellow (Yellow) 09/17/22 00:30 Urine Appearance Clear (CLEAR) 09/17/22 00:30 Urine pH 7 (5-7) 09/17/22 00:30 Ur Specific [place] 1.010 (1.005-1.030) 09/17/22 00:30 Urine Protein Neg (Negative) 09/17/22 00:30 Urine Glucose (UA) 4+ (Normal) H 09/17/22 00:30 Urine Ketones Negative (Negative) 09/17/22 00:30 Urine Blood Neg (Negative) 09/17/22 00:30 Urine Nitrate Negative (Negative) 09/17/22 00:30 Urine Bilirubin Neg (Negative) 09/17/22 00:30 Urine Urobilinogen Norm mg/dL (Negative) 09/17/22 00:30 Ur Leukocyte Esterase Negative (Negative) 09/17/22 00:30 Influenza Type A Ag negative (Negative) 09/17/22 12:37 Influenza Type B Ag negative (Negative) 09/17/22 12:37 Vitals Last Vital Signs Temp 98.3 F 09/18/22 08:00 Pulse 84 09/18/22 09:00 Resp 18 09/18/22 09:00 BP 136/93 09/18/22 08:00 Pulse Ox 92 09/18/22 09:00 O2 Del Method 09/18/22 09:00 O2 Flow Rate 2 09/17/22 20:00 Discharge Plan Discharge Patient Disposition: Home Condition: Stable Prescriptions: New benzonatate 100 mg Capsule 100 mg PO TID PRN (Reason: Cough) Qty: 14 0RF ferrous gluconate 324 mg (37.5 mg iron) Tablet 324 mg PO BIDWM Qty: 60 0RF meclizine 25 mg Tablet 25 mg PO TID PRN (Reason: Dizziness) Qty: 10 0RF Advair Diskus 100-50 mcg/dose blister with device 1 inh inhalation BID Qty: 60 0RF Continued desloratadine 5 mg tablet 5 mg PO DAILY clopidogrel 75 mg tablet 75 mg PO DAILY lisinopril 10 mg tablet 10 mg PO DAILY pravastatin 20 mg tablet 20 mg PO BEDTIME duloxetine 30 mg capsule,delayed release(DR/EC) 30 mg PO DAILY melatonin 5 mg Tablet 5 mg PO BEDTIME Invokana 100 mg tablet 100 mg PO DAILY [id number] Tablet 1 tab PO DAILY Caltrate 600 plus D 600 mg-20 mcg (800 unit) Tablet,Chewable 1 tab PO DAILY omeprazole 20 mg capsule,delayed release(DR/EC) 20 mg PO DAILY fluticasone propionate 50 mcg/actuation spray,suspension 1 spray INTRANASAL DAILY Ventolin HFA 90 mcg/actuation HFA aerosol inhaler 2 puff INHALATION Q4H PRN (Reason: Shortness Of Breath Or Wheezing) Changed furosemide 20 mg tablet 20 mg PO DAILY PRN (Reason: Swelling) Qty: 10 0RF Discharge Orders: Discharge Order (Routine); Ordered 09/18/22 Ordered By: Tl Barajas Other Ambulatory Orders: DME: [facility] (Order) Location: None Selected Ordered By: Tl Barajas Referrals: [facility] [Other] - 09/25/22 2:20 pm (Dr. Newman ) Discharge Diet: Cardiac Discharge Activity: Resume usual activity and Increase activity as tolerated Patient Instructions: Benzonatate (By mouth), Iron Supplements (By mouth), Meclizine (By mouth), Fluticasone/Salmeterol (By breathing) (Advair Diskus 100/50, Advair..., COPD Stoplight, Opioid Safety Activity Restrictions/Additional Instructions: Please follow-up with your primary care provider within next 1 week for repeat BMP. Do not take Lasix anymore. Drink at least 1.5 to 2 L of water daily. Continue using your nebulizer as before. If you are not able to nebulize you can use Advair inhalation treatment. Discharge Attestations Time Spent in Discharge Care*: greater than 30 min Specific Discharge Activities: educating patient, discussing with pcp/other providers, discussing with family preservation caseworker/social workers/dc planners, documenting/other paperwork and evaluating patient/reviewing data Status at Discharge: Cognitive status at discharge: cognitively intact, Behavioral status at discharge: cooperative, Functional status at discharge: independent ambulation, Overall status at discharge: patient is back to baseline Quality Metrics Clinical Quality Measures [ No reported AMI, CVA or VTE this stay] Coding Level of Care Code 16078 Total time (in minutes) for Discharge: 45 Diagnoses Weakness R53.1 Hypokalemia E87.6 Dizziness R42 Diarrhea R19.7 Hypertension I10 COPD (chronic obstructive pulmonary disease) J44.9 Diabetes E11.9
--- NOTE | 2022-09-18 11:15 | PC.CHAP ---
Pastoral Care Encounter/Spiritual Assessment Type of Contact [] Declined coke crusher operator visit [] Patient/Family/Request visit [] Outpatient visit [] Follow-up visit [] Physician referral [] Code/Alert [] Routine visit [] Staff referral [] Actively dying [] Patient sleeping [] Family support [] [x] Out of room [] Palliative care [] [] Receiving care in room [] Pre-surgical visit [] Trauma [] Long length of stay [] ICU visit [] Other: Relational/Emotional Strength [] Patient feels connected with others/family/visitors/staff [] Distress [] Loneliness/isolation [] Abandonment Spirituality of Patient [] Person of [place]лия [] Attends Jew of their [place] [] Believes in Prayer [] Reads Bible or Nondenominational materials [] There are Spiritual issues to be addressed Director Nursing Service Interventions [] Prayer [] Active listening [] Non-anxious presence [] Spiritual/emotional support [] Crisis/trauma care [] Spiritual counseling [] Bereavement support [] Provided bereavement packet [] Provided Bible/devotional materials [] Provided toy/stuffed animal, coloring book to patient or family member [] Provided Communion [] Anointing/[place] [] Salvation [] Completed spiritual assessment [] Other: Impact on Illness or Injury [] Angry [] Fearful [] Anxious [] Often cries [] Exhaustion [] Unable to work [] Unable to attend yazidi [] Unable to walk/stand [] Unable to read [] Unable to drive [] Unable to eat/drink [] Unable to sleep [] Unable to be with family [] Patient intubated [] Other: Summary Time spent with patient
[2022-09-18 11:59] LABS: Glucose Point of Care 153 mg/dL (70-110)
[2022-09-18] MEDS: duloxetine 30 mg Capsule PO (12:05)
[2022-09-18] MEDS: docusate sodium 100 mg Capsule PO (12:05)
[2022-09-18] MEDS: pantoprazole DR 40 mg Tablet PO (12:05)
[2022-09-18] MEDS: lisinopril 10 mg Tablet PO (12:05)
[2022-09-18] MEDS: benzonatate 100 mg Capsule PO (12:05)
[2022-09-18] MEDS: ferrous gluconate 324 mg Tablet PO (12:05)
[2022-09-18] MEDS: clopidogrel 75 mg Tablet PO (12:05)
[2022-09-18] MEDS: insulin lispro 100 unit/1 mL SUBCUT (12:06)
--- NOTE | 2022-09-18 13:01 | CT_ITS ---
WS: [id number] CT HEAD TECHNIQUE: Noncontrast CT of the head obtained from the skullbase to the vertex. CLINICAL INFORMATION: post circulation stroke COMPARISON: None. DLP: 927.[address] scans at [facility] use at least one of these dose optimization techniques: automated e xposure control; mA and/or kV adjustment per patient size (includes targeted exams where dose is matc hed to clinical indication); or iterative reconstruction. FINDINGS: No evidence of intracranial hemorrhage or mass effect. Ventricular system and basal cisterns are herrera nt. Mild small vessel changes with mild parenchymal volume loss. No extra-axial fluid collections. Ch ronic infarct in the RIGHT frontal periventricular white matter. Mild ex vacuo dilatation adjacent RI GHT frontal horn. Cavernous carotid calcification. SURVEILLANCE OBSERVER territory appears normal. Incidental slightly low-lying cerebellar tonsils. No hydrocephalus. Par anasal and mastoid air cells are well aerated. RIGHT maxillary sinus retention cyst or polyp. Normal posterior nasopharynx. CT/CT head wo con* [id number] IMPRESSION: 1. No evidence of intracranial hemorrhage or mass effect. 2. Chronic infarct in the RIGHT frontal periventricular white matter with ex v acuo dilatation RIGHT frontal horn. 3. Normal appearing SURVEILLANCE OBSERVER territory. This can be further evaluated MRI if indica alejandra. 4. Vascular calcification. 5. No acute intracranial findings.
[2022-09-18] MEDS: ibuprofen 200 mg Tablet 400 MG PO (16:01)
--- NOTE | 2022-09-18 19:55 | PC.NURSE ---
pts family at facility to take pt home, discharge orders reviewed and noted, discharge packet and prescriptions sent with pt.
== END 2022-09-18 19:57 | disposition home or self-care (01) ==
LOC: ER 09-17 04:56 → MEDSURG 09-17 13:54
PROVIDERS: Student in an Organized Health Care Education/Training Program; Admitting Provider Student in an Organized Health Care Education/Training Program; Emergency Provider Emergency Medicine; Visit Provider Student in an Organized Health Care Education/Training Program
DX: R53.1 Weakness (principal); R19.7 Diarrhea, unspecified; I10 Essential (primary) hypertension; J44.9 Chronic obstructive pulmonary disease, unspecified; E11.9 Type 2 diabetes mellitus without complications; F41.9 Anxiety disorder, unspecified
CPT/HCPCS: 36415; 36416; 70450; 71045; 80048; 80053; 80061; 81003; 82607; 82746; 82962; 83036; 83540; 83550; 83605; 83735; 84100; 84145; 84443; 84484; 85025; 86403; 87449; 87804; 93005; 93306; 94640; 94664; 96365; 96366; 96372; 96375; 97110; 97116; 97161; 97530; 99285; G0378; J1644; J1815; J2405; J3475; J3480; J7030; J7626